=== PATIENT | male | born 1995 | race Caucasian/White ===

== ENCOUNTER 2018-05-01 16:11 | Emergency (ER) | payer OTHER ==
[2018-05-01 16:22] VITALS: BP 129/76
--- NOTE | 2018-05-01 17:05 | ER Document Report ---
HPI - HPI Patient complains to provider of: Right eye pain Onset: This morning Onset/Duration: Gradual Pain Level: 3 Context: 22-year-old contact lens wear was driving home from [place] in his truck and developed irritation to his right eye. An increase photosensitivity on the drive home. He took the contact out and the eye is gotten redder during the trip. Exacerbated by: Denies Relieved by: Denies - ROS ROS below otherwise negative: Yes Systems Reviewed and Negative: Yes All other systems reviewed and negative - EENT EENT: REPORTS: Eye problems Past Medical History - Social History Smoking Status: Never Smoker Frequency of alcohol use: Rare Drug Abuse: None Lives with: Parents Family History: Reviewed & Not Pertinent Patient has suicidal ideation: No Patient has homicidal ideation: No - Medical History Medical History: Negative Renal/ Medical History: Denies: Hx Peritoneal Dialysis Surgical Hx: Negative Vertical Provider Document - CONSTITUTIONAL Agree With Documented VS: Yes Exam Limitations: No Limitations General Appearance: No Apparent Distress - HEENT HEENT: Conjuctival Injection - Palpebral more than a bar,, PERRLA Notes: Mild swelling to the upper lid but there is no stye. There is no foreign body under the lid when it was flipped. No fluorescein uptake. - NECK Neck: Supple. negative: Lymphadenopathy-Left, Lymphadenopathy-Right Course - Re-evaluation Re-evalutation: 05/01/18 Visual acuity is normal - Vital Signs Vital signs: Temp Pulse Resp BP Pulse Ox 98.0 F 60 16 129/76 H 98 2018 16:20 2018 16:20 05/01/18 16:20 20 16:20 05/01/18 16:20 Discharge - Discharge Clinical Impression: Right eye conjunctivitis Condition: Good Disposition: HOME, SELF-CARE Instructions: Conjunctivitis ([facility]), Quinolone Antibiotics ([facility]) Additional Instructions: Do not rub eye Warm compress No contact in the right eye until the eye is better Return to the emergency department if it worsens over the weekend with pain, swelling, fever Prescriptions: Besifloxacin HCl [Besivance Drops] 1 drop OD TID #1 bottle Referrals: JUAN JOSE CASTRO MD [ACTIVE STAFF] - Follow up as needed
== END 2018-05-01 17:08 | disposition home or self-care (01) ==
LOC: ER 16:11
DX: H10.9 Unspecified conjunctivitis (principal)
CPT/HCPCS: 99283